=== PATIENT | female | born 1960 ===

== ENCOUNTER 2017-08-19 05:36 | Day surgery (SDC) | payer OTHER ==
[~2017-08-19 05:36] MED LIST: ACID CONTROL150 MG; METHOTREXATE2.5 MG; VESICARE10 MG
== END 2017-08-19 14:30 | disposition home or self-care (01) ==
LOC: CIR.AMB 05:36
DX: N88.8 Other specified noninflammatory disorders of cervix uteri (principal)

== ENCOUNTER 2019-06-06 16:41 | Emergency (ER) | payer OTHER ==
[~2019-06-06] VITALS: Ht 152.4 cm; Wt 60.8 kg
== END 2019-06-06 20:06 | disposition home or self-care (01) ==
LOC: ER 16:41
DX: E86.0 Dehydration (principal); R10.13 Epigastric pain; R11.11 Vomiting without nausea

== ENCOUNTER 2021-12-04 05:50 | Day surgery (SDC) | payer OTHER ==
[~2021-12-04] VITALS: Ht 152.4 cm; Wt 58.5 kg
[~2021-12-04 05:50] MED LIST changes: +CEVIMELINE HCL30 MG PO; +CLONAZEPAM0.5 M1 PO; +D3 + K2 DOTS 11 EACH PO; +PLAQUENIL; +VESICARE10 MG PO
== END 2021-12-04 13:10 | disposition home or self-care (01) ==
LOC: CIR.AMB 05:50
PROVIDERS: ATTEND Obstetrics & Gynecology
DX: N84.0 Polyp of corpus uteri (principal); Q51.818 Other congenital malformations of uterus; Z20.822 Contact with and (suspected) exposure to COVID-19; Z88.8 Allergy status to other drugs, medicaments and biological substances; Z86.16 Personal history of COVID-19; E78.5 Hyperlipidemia, unspecified